=== PATIENT | female | born 1945 | race American Indian/Alaskan Native ===

== ENCOUNTER 2016-05-14 16:53 | Inpatient (IN) | payer MEDICARE, OTHER ==
[2016-05-14] MEDS ORDERED: NACL 0.9% 1000 ML 1,000 ML IV ONE (17:36)
--- NOTE | 2016-05-14 17:40 | Emergency Department Report ---
ED Syncope HPI - General Chief Complaint: Dizziness Stated Complaint: DIZZINESS/LOW BP Time Seen by Provider: 05/14/16 17:27 Source: patient, family Exam Limitations: no limitations - History of Present Illness Initial Comments: 71-year-old female appears medical history of hypertension, osteoporosis, and elevated cholesterol presents hospital complaints of syncopal episode. Patient states she has felt fine throughout the day he went to taoist earlier. She was at a restaurant eating with her family when she felt extremely lightheaded and hot. Family member states she slumped over and was unresponsive for a few seconds. Upon EMS arrival initial blood pressure reported at 82/60 with a thready pulse but improved to systolic blood pressure 107. She states she's been told that she had a fast heart rate in the past. She denies headache, chest pain, shortness of breath, nausea, vomiting, diarrhea, calf tenderness, calf edema, focal numbness or weakness. No meds given in route. PMD: Dr. Golden - Related Data Allergies/Adverse Reactions: Allergies No Known Allergies Allergy (Unverified 05/14/16 17:01) ED Review of Systems ROS: Stated complaint: DIZZINESS/LOW BP Other details as noted in HPI Comment: All other systems reviewed and negative Other: Constitutional: No fevers chills Eyes: No eye pain visual changes ENT: No ear pain or throat pain Neck: Denies pain Respiratory: Denies cough wheezing shortness of breath Cardiovascular: Denies chest pain GI: Denies abdominal pain, nausea, vomiting, diarrhea : Denies dysuria Musculoskeletal: Denies back pain Skin: Denies rash, lesions, erythema Neurologic: Denies headache, numbness, weakness Psychiatric: Denies suicidal ideation, hallucinations ED Past Medical Hx - Past Medical History Previous Medical History?: Yes Hx Hypertension: Yes - Surgical History Past Surgical History?: No ED Physical Exam - General Limitations: No Limitations - Other Other exam information: General: No limitations, patient is alert in no acute distress Head exam: Atraumatic, normocephalic Eyes exam: Normal appearance, pupils equal reactive to light, extraocular movements intact ENT: Moist mucous membrane, normal oropharynx Neck exam: Normal inspection, full range of motion, no meningismus nontender Respiratory exam: Clear to auscultation bilateral, no wheezes, rales, crackles Cardiovascular: Normal rate and rhythm, normal heart sounds Abdomen: Soft, nondistended, and nontender, with normal bowel sounds, no rebound, or guarding Extremity: Full range of motion normal inspection no deformity Back: Normal Inspection, full range of motion, no tenderness Neurologic: Alert, oriented x3, cranial nerves intact, no motor or sensory deficit, [id number] function intact Psychiatric: normal affect, normal mood Skin: Warm, dry, intact ED Course Vital Signs 05/14/16 05/14/16 05/14/16 17:01 17:20 17:30 Pulse Rate 64 86 Respiratory 16 17 Rate Blood Pressure 116/54 O2 Sat by Pulse 95 98 98 Oximetry 05/14/16 05/14/16 18:02 18:30 Pulse Rate 99 H 83 Respiratory 15 15 Rate Blood Pressure 117/65 112/60 O2 Sat by Pulse 100 Oximetry - Reevaluation(s) Reevaluation #1: 05/14/16 18:55 Hr increased by 20 bpm with standing but normal bp with orthastatic vital signs. ED Medical Decision Making - Lab Data Result diagrams: 05/14/16 18:14 05/14/16 17:37 Lab Results 05/14/16 05/14/16 05/14/16 Range/Units 17:37 17:37 17:37 WBC TNR RBC TNR Hgb TNR Hct TNR MCV TNR MCH TNR MCHC TNR RDW TNR Plt Count TNR Lymph % (Auto) TNR [place] % (Auto) TNR Eos % (Auto) TNR Baso % (Auto) TNR Lymph # TNR [place] # TNR Eos # TNR Baso # TNR Add Manual Diff TNR Seg Neutrophils % TNR Seg Neutrophils # TNR Sodium 140 (137-145) mmol/L Potassium 3.7 (3.6-5.0) mmol/L Chloride 100.8 (98-107) mmol/L Carbon Dioxide 20 L (22-30) mmol/L Anion Gap 23 mmol/L BUN 14 (7-17) mg/dL Creatinine 0.8 (0.7-1.2) mg/dL Estimated GFR > 60 ml/min BUN/Creatinine Ratio 17.50 % Glucose 126 H (65-100) mg/dL Calcium 9.3 (8.4-10.2) mg/dL Magnesium 2.0 (1.7-2.3) mg/dL Total Creatine Kinase 167 H (30-135) units/L CK-MB (CK-2) 2.4 (0.0-4.0) ng/mL CK-MB (CK-2) Rel Index 1.4 (0-4) Troponin T < 0.010 (0.00-0.029) ng/mL 05/14/16 Range/Units 18:14 WBC 9.5 RBC 4.51 Hgb 12.6 Hct 39.8 MCV 88 MCH 28 MCHC 32 RDW 14.9 Plt Count 248 Lymph % (Auto) 24.7 [place] % (Auto) 4.5 Eos % (Auto) 0.8 Baso % (Auto) 0.5 Lymph # 2.3 [place] # 0.4 Eos # 0.1 Baso # 0.0 Add Manual Diff Seg Neutrophils % 69.5 Seg Neutrophils # 6.6 Sodium (137-145) mmol/L Potassium (3.6-5.0) mmol/L Chloride (98-107) mmol/L Carbon Dioxide (22-30) mmol/L Anion Gap mmol/L BUN (7-17) mg/dL Creatinine (0.7-1.2) mg/dL Estimated GFR ml/min BUN/Creatinine Ratio % Glucose (65-100) mg/dL Calcium (8.4-10.2) mg/dL Magnesium (1.7-2.3) mg/dL Total Creatine Kinase (30-135) units/L CK-MB (CK-2) (0.0-4.0) ng/mL CK-MB (CK-2) Rel Index (0-4) Troponin T (0.00-0.029) ng/mL - EKG Data -: EKG Interpreted by Me (sinus, pvc, rate 81) - Medical Decision Making Plan to admit patient to the hospital for further monitoring and evaluation status post syncopal episode. Hospitalist informed. - Differential Diagnosis arrhythmia, vasovagal, anemia, hypovolemia, infection Critical Care Time: No Critical care attestation.: If time is entered above; I have spent that time in minutes in the direct care of this critically ill patient, excluding procedure time. ED Disposition Clinical Impression: PVC (premature ventricular contraction), Transient hypotension Syncope Qualifiers: Syncope type: unspecified Qualified Code(s): R55 - Syncope and collapse Disposition: OP ADMITTED IP TO THIS HOSP Is pt being admited?: Yes Condition: Stable Time of Disposition: 18:56 (Dr palacios/hosp)
[2016-05-14 18:07] LABS: Basophils % (Auto) TNR % (0.0-1.8); Diff Status TNR; Eosinophils % (Auto) TNR % (0.0-4.3); Hematocrit TNR % (30.3-42.9); Hemoglobin TNR gm/dl (10.1-14.3); Mean Corpuscular HGB Conc TNR % (30-34); Mean Corpuscular Hemoglobin TNR pg (28-32); Mean Corpuscular Volume TNR fl (79-97); Mean Platelet Volume TNR fl (6-12); Platelet Count TNR K/mm3 (140-440); Red Blood Count TNR M/mm3 (3.65-5.03); Red Cell Distribution Width TNR % (13.2-15.2); White Blood Count TNR K/mm3 (4.5-11.0)
[2016-05-14 18:35] LABS: Creatine Kinase MB 2.4 ng/mL (0.0-4.0)
[2016-05-14 18:36] LABS: Anion Gap 23 mmol/L; Blood Urea Nitrogen 14 mg/dL (7-17); Calcium 9.3 mg/dL (8.4-10.2); Carbon Dioxide 20 mmol/L (22-30); Chloride 100.8 mmol/L (98-107); Creatine Kinase 167 units/L (30-135); Glucose 126 mg/dL (65-100); Potassium 3.7 mmol/L (3.6-5.0); Sodium 140 mmol/L (137-145)
[2016-05-14 18:53] LABS: Basophils % (Auto) 0.5 % (0.0-1.8); Eosinophils % (Auto) 0.8 % (0.0-4.3); Hematocrit 39.8 % (30.3-42.9); Hemoglobin 12.6 gm/dl (10.1-14.3); Mean Corpuscular HGB Conc 32 % (30-34); Mean Corpuscular Hemoglobin 28 pg (28-32); Mean Corpuscular Volume 88 fl (79-97); Platelet Count 248 K/mm3 (140-440); Red Blood Count 4.51 M/mm3 (3.65-5.03); Red Cell Distribution Width 14.9 % (13.2-15.2); White Blood Count 9.5 K/mm3 (4.5-11.0)
[2016-05-14 19:12] LABS: Bilirubin,Urine NEG (Negative); Blood,Urine NEG (Negative); Ketones,Urine NEG (Negative); Leukocyte Esterase,Urine SM (Negative); Mucus,Urine FEW /HPF; Nitrite,Urine NEG (Negative); Protein,Urine <15 mg/dL mg/dL (Negative); Urobilinogen,Urine < 2.0 mg/dL (<2.0)
[2016-05-14] MEDS ORDERED: MILK OF MAGNESIA PO PRN (19:14)
[2016-05-14] MEDS ORDERED: TYLENOL PO PRN (19:14)
[2016-05-14] MEDS ORDERED: ZOFRAN IV PRN (19:14)
[2016-05-14] MEDS ORDERED: DULCOLAX PR PRN (19:14)
[2016-05-14] MEDS ORDERED: NORCO 5/325 PO PRN (19:14)
--- NOTE | 2016-05-14 19:22 | History and Physical Report ---
History of Present Illness Date of examination: 05/14/16 Date of admission: 05/14/2016 Chief complaint: Syncope History of present illness: Patient 71-year-old female that presents to the ED after a syncopal episode that happened after christianity when she was in a restaurant. Patient states she began to get hot and then had an episode where she passed out. Only prodromal symptom was feeling hot. Patient also had a similar episode approximately 6 months ago when she was at her sister's house sitting on the couch and began to get hot and also passed out as well. Seem to last less than 1 minute. Patient also states it was a time she passed out before that but does not remember the details. Daughter and son both at bedside. All questions and concerns answered to their satisfaction. It was asked at this time didn't remember the blood pressure medications or she remember the blood pressure medication she was taking because the pressure was low upon presentation. Patient states no. Patient goes to [facility] and has had a workup at either [place] or [facility]. Patient states workup they think was after her initial episode of passing out. Cardiac workup done approximately 1 year ago was negative. But this cardiac workup was not in response to this syncopal episode. This was a routine workup was she had a stress tests and she says results were negative at [place]. Important to note that the blood pressure was low when patient came into the ED. Patient blood pressure responded after receiving one to 2 L of normal saline. Past History Past Medical History: denies: acute [place], atrial fib, arrhythmia, arthritis, CAD, COPD, dialysis, ESRD, GERD, heart failure, hepatitis, HIV/AIDS, hypertension, hypothyroidism, liver disease, pulmonary embolism, renal failure Past Surgical History: No surgical history Social history: single, lives with family. denies: smoking, alcohol abuse, prescription drug abuse, IV drug use, full code Family history: no significant family history Medications and Allergies Allergies Allergy/AdvReac Type Severity Reaction Status Date / Time No Known Allergies Allergy Unverified 05/14/16 17:01 Review of Systems Constitutional: no chills, no anorexia, no fatigue, no weakness, no malaise, no lethargy, no daytime sleepiness, no chronic pain Ears, nose, mouth and throat: no ear pain, no ear discharge, no tinnitis, no nose pain, no nasal congestion, no nasal discharge, no sinus pressure, no mouth pain, no hoarseness, no post-nasal drip, no headache, no vertigo, no pain front of neck, no neck lump Breasts: no deferred, no normal, no change in shape, no mass, no pain Cardiovascular: syncope, no chest pain, no orthopnea, no rapid/irregular heart beat, no edema, no lightheadedness, no shortness of breath, no dyspnea on exertion, no claudication, no phlebitis, no high blood pressure, no leg edema Respiratory: no cough with sputum, no excessive sputum, no shortness of breath, no wheezing, no snoring, no sleep apnea, no respiratory infections Gastrointestinal: no diarrhea, no change in bowel habits, no loss of appetite, no early satiety, no heartburn, no excessive gas, no dyspepsia/bloating, no early satiety Genitourinary Female: no , no kidney stones Menstruation: no ammenorrhea, no period normal, no period spotting Rectal: no incontinence, no bleeding Musculoskeletal: no neck stiffness, no shooting arm pain, no arm numbness/ tingling, no low back pain, no shooting leg pain, no redness of joints, no morning stiffness, no muscle weakness, no myalgias, no limitation of motion, no fractures, no loss of height, no arthritis Integumentary: no pruritis, no redness, no jaundice Neurological: syncope, no head injury, no weakness, no parathesias, no numbness , no tingling, no seizures, no tremors, no ataxia, no lack of coordination, no vertigo, no headaches, no migraines, no tic, no convulsions, no aphasia, no change in speech, no change in mentation, no confusion, no memory loss, no changes in smell/taste, no balance difficulties, no gait dysfunction, no motor disturbance, no double vision, no hearing difficulties, no paralysis Psychiatric: no memory loss, no change in sleep habits, no insomnia, no hypersomnia, no change in appetite, no suicidal ideation, no disorientation, no depression, no difficulties concentrating, no sadness/tearfullness, no mood swings Endocrine: no heat intolerance, no polyphagia, no excessive thirst, no nocturia , no excessive sweating, no increase in ring/shoe/hat size, no proptosis, no thyroid mass, no low blood sugars, no recent glucocorticoid use Hematologic/Lymphatic: no easy bruising, no easy bleeding, no lymphadenopathy, no lymphedema, no thrombophilia Allergic/Immunologic: no urticaria, no allergic rhinitis, no persistent infections, no angioedema, no seasonal allergies Exam - Constitutional Vitals: Temp Pulse Resp BP Pulse Ox 83 15 112/60 100 05/14/16 18:30 05/14/16 18:30 05/14/16 18:30 05/14/16 18:30 General appearance: Present: no acute distress, well-nourished - EENT Eyes: Present: PERRL ENT: hearing intact, clear oral mucosa - Respiratory Respiratory effort: normal Respiratory: bilateral: CTA - Cardiovascular Heart Sounds: Present: S1 & S2. Absent: rub, click - Extremities Extremities: pulses symmetrical, No edema Peripheral Pulses: within normal limits - Abdominal General gastrointestinal: Present: soft, non-tender, non-distended, normal bowel sounds - Integumentary Integumentary: Present: clear, warm, dry - Musculoskeletal Musculoskeletal: gait normal, strength equal bilaterally - Psychiatric Psychiatric: appropriate mood/affect, intact judgment & insight - Neurologic Neurologic: CNII-XII intact, moves all extremities Results - Labs CBC & Chem 7: 05/14/16 18:14 05/14/16 17:37 Labs: Laboratory Last Values WBC 9.5 K/mm3 (4.5-11.0) 05/14/16 18:14 RBC 4.51 M/mm3 (3.65-5.03) 05/14/16 18:14 Hgb 12.6 gm/dl (10.1-14.3) 05/14/16 18:14 Hct 39.8 % (30.3-42.9) 05/14/16 18:14 MCV 88 fl (79-97) 05/14/16 18:14 MCH 28 pg (28-32) 05/14/16 18:14 MCHC 32 % (30-34) 05/14/16 18:14 RDW 14.9 % (13.2-15.2) 05/14/16 18:14 Plt Count 248 K/mm3 (140-440) 05/14/16 18:14 Lymph % (Auto) 24.7 % (13.4-35.0) 05/14/16 18:14 [place] % (Auto) 4.5 % (0.0-7.3) 05/14/16 18:14 Eos % (Auto) 0.8 % (0.0-4.3) 05/14/16 18:14 Baso % (Auto) 0.5 % (0.0-1.8) 05/14/16 18:14 Lymph # 2.3 K/mm3 (1.2-5.4) 05/14/16 18:14 [place] # 0.4 K/mm3 (0.0-0.8) 05/14/16 18:14 Eos # 0.1 K/mm3 (0.0-0.4) 05/14/16 18:14 Baso # 0.0 K/mm3 (0.0-0.1) 05/14/16 18:14 Add Manual Diff TNR 05/14/16 17:37 Seg Neutrophils % 69.5 % (40.0-70.0) 05/14/16 18:14 Seg Neutrophils # 6.6 K/mm3 (1.8-7.7) 05/14/16 18:14 Sodium 140 mmol/L (137-145) 05/14/16 17:37 Potassium 3.7 mmol/L (3.6-5.0) 05/14/16 17:37 Chloride 100.8 mmol/L (98-107) 05/14/16 17:37 Carbon Dioxide 20 mmol/L (22-30) L 05/14/16 17:37 Anion Gap 23 mmol/L 05/14/16 17:37 BUN 14 mg/dL (7-17) 05/14/16 17:37 Creatinine 0.8 mg/dL (0.7-1.2) 05/14/16 17:37 Estimated GFR > 60 ml/min 05/14/16 17:37 BUN/Creatinine Ratio 17.50 % 05/14/16 17:37 Glucose 126 mg/dL (65-100) H 05/14/16 17:37 Calcium 9.3 mg/dL (8.4-10.2) 05/14/16 17:37 Magnesium 2.0 mg/dL (1.7-2.3) 05/14/16 17:37 Total Creatine Kinase 167 units/L (30-135) H 02/19/17 17:37 CK-MB (CK-2) 2.4 ng/mL (0.0-4.0) 05/14/16 17:37 CK-MB (CK-2) Rel Index 1.4 (0-4) 05/14/16 17:37 Troponin T < 0.010 ng/mL (0.00-0.029) 05/14/16 17:37 Urine Bilirubin Neg (Negative) 05/14/16 18:10 Urine RBC (Auto) 4.0 /HPF (0.0-6.0) 05/14/16 18:10 U Epithel Cells (Auto) < 1.0 /HPF (0-13.0) 05/14/16 18:10 - Imaging and Cardiology EKG: image reviewed Assessment and Plan Advance Directives: Yes VTE prophylaxis?: Chemical Plan of care discussed with patient/family: Yes - Patient Problems (1) PVC (premature ventricular contraction) Current Visit: Yes Status: Acute Plan to address problem: Patient at present on EKG and on physical exam has multiple PVCs. Obtain echocardiogram we'll also obtain cardiology consult to see if they could be some role of recurring PVCs and this syncope. We'll give obtain echo to rule out any structural heart disease that we know of. Patient has had negative stress tests approximately one year ago so may not be very important. We'll provide extensive check of electrolytes. Current electrolytes potassium magnesium have been normal and does not appear to be etiology of PVCs. Unknown whether this in combination with the blood pressure medication caused hypotension. Still low on the differential at this point (2) Syncope Current Visit: Yes Status: Acute Qualifiers: Syncope type: unspecified Encounter type: E Qualified Code(s): R55 - Syncope and collapse Plan to address problem: Syncope exact etiology unknown at present at top of the differential is vasovagal. Patient felt hot and then passed out on both occasions. Also orthostatic hypotension also in the differential. Patient blood pressure was low and didn't respond to normal saline. Also patient may not require high dose of antihypertensives. We are not sure at this point what she's taking. However if she is on a high dose beta sami and/or high dose of medications may be this was too much for her and this what caused her blood pressure to go down. Patient has no evidence of dehydration on physical exam. Her creatinine looked normal and patient states she's been eating and drinking as usual. Will see how patient's PVCs respond on the monitor and obtain echocardiogram cardiology consult. (3) Transient hypotension Current Visit: Yes Status: Acute Plan to address problem: Present hypotension could be secondary to patient's blood pressure med
[2016-05-14 20:18] LABS: Creatine Kinase MB 2.3 ng/mL (0.0-4.0)
[2016-05-14] MEDS: NACL 0.9% 1000 ML 1,000 ML IV SCH (21:42)
[2016-05-15] MEDS: NACL 0.9% 1000 ML 1,000 ML IV SCH ×2 (05:44→16:18)
--- NOTE | 2016-05-15 09:03 | Admit Criteria Form ---
Admission Criteria Documentation: SYNCOPE Clinical Indications for Admission to Inpatient Care ( Place 'X' for any and all applicable criteria): Admission is indicated for syncope and ANY ONE of the following (1)(2)(3)(4)(5) (6)(7) : [X]I. Inpatient admission required rather than observation care (Also use Syncope: Observation Care Criteria as appropriate) because of ANY ONE of the following: []a) Hemodynamic instability that is severe or persistent [X]b) Cardiac arrhythmias of immediate concern identified or strongly suspected (eg, needs electrophysiologic study) [ ]c) Acute coronary syndrome identified (Also use Myocardial Infarction or Angina Criteria form ) [ ]d) Structural cardiac disorder (eg, aortic stenosis) suspected as cause that requires immediate correction [ ]e) Respiratory symptoms (eg, dyspnea, tachypnea) that are severe or persistent [ ]f) Neurologic signs or symptoms that are severe or persistent ( eg, stroke, seizures, altered mental status) [ ]g) Severe electrolyte abnormalities requiring inpatient care [ ]h) Supplemental oxygen or respiratory treatment for over 24 hrs that are performable only in acute inpatient setting [ ]i) IV fluid to replace significant ongoing (eg, for over 24 hrs ) losses (>3 L/m2 per day) [ ]j) Continuous intravenous infusion of anticoagulation, platelet inhibitor, vasoactive, or antiarrhythmic medication(15)(16) [ ]k) Pulmonary artery catheter monitoring [ ]l) Temporary pacemaker placement(17) [ ]m) Emergent cardioversion(18) [ ]n) Other conditions, treatment or monitoring requiring inpatient admission [ ]II. Suspicion of imminently dangerous cause (eg, rare causes like pericardial tamponade, pulmonary embolism) [ ]III. Syncope causing severe injury requiring hospitalization Extended stay beyond goal length of stay may be needed for(28) [ ]a) Dangerous arrhythmia(15)(23)(27)(29) [ ]b) Myocardial ischemia [ ]c) Seizure disorder [ ]d) Syncope-related injuries The original [employer] content created by [employer] has been revised. The portions of the content which have been revised are identified through the use of italic text or in bold, and [employer] has neither reviewed nor approved the modified material. All other unmodified content is copyright [employer]. Please see references footnoted in the original [facility] edition 2016 Admission Criteria Met: Yes
[2016-05-15] MEDS: LOVENOX SUB-Q SCH ×2 (09:52→10:27)
[2016-05-15] MEDS ORDERED: NON-FORMULARY (Lisinopril/Hydrochlorothiazide [Zestoretic 10-12.5 Mg] 1 TAB) PO SCH (13:00)
--- NOTE | 2016-05-15 13:11 | Progress Note ---
Assessment and Plan Assessment and plan: Syncope. Etiology unclear. Echocardiogram ordered. Obtain orthostatic vitals every 8 hours. Cardiology consulted. Multiple PVCs on tele. May need betablockers. She is on Tele monitor. Hypertension. Resume home meds. Hyperlipidemia. Continue Statuns DVT prophylaxis with Lovenox Full code status History Interval history: Presents presents with syncope while she was at a restaurant, No chest pain No shortness of breath Hospitalist Physical - Physical exam Narrative exam: Gen. appearance: not in acute distress, HEENT: Normocephalic atraumatic, Neck: supple , no JVD Lungs: clear to auscultation, bilaterally . no rales, no wheezes. Heart: S1-S2 regular, no murmurs, rubs or gallop Abdomen:soft, non-tender, non-distended, normal bowel sounds Ext: No edema, clubbing or cyanosis Neuro : Awake alert oriented 3, no focal neurologic signs Psychiatry: normal mood Skin: no rashes - Constitutional Vitals: Temp Pulse Resp BP Pulse Ox 98.8 F 87 20 139/70 99 05/15/16 07:00 05/15/16 07:00 05/15/16 07:00 05/15/16 07:00 05/15/16 07:00 Results - Labs CBC & Chem 7: 05/14/16 18:14 05/14/16 17:37 Labs: Laboratory Last Values WBC 9.5 K/mm3 (4.5-11.0) 05/14/16 18:14 RBC 4.51 M/mm3 (3.65-5.03) 05/14/16 18:14 Hgb 12.6 gm/dl (10.1-14.3) 05/14/16 18:14 Hct 39.8 % (30.3-42.9) 05/14/16 18:14 MCV 88 fl (79-97) 05/14/16 18:14 MCH 28 pg (28-32) 05/14/16 18:14 MCHC 32 % (30-34) 05/14/16 18:14 RDW 14.9 % (13.2-15.2) 05/14/16 18:14 Plt Count 248 K/mm3 (140-440) 05/14/16 18:14 Lymph % (Auto) 24.7 % (13.4-35.0) 05/14/16 18:14 [place] % (Auto) 4.5 % (0.0-7.3) 05/14/16 18:14 Eos % (Auto) 0.8 % (0.0-4.3) 05/14/16 18:14 Baso % (Auto) 0.5 % (0.0-1.8) 05/14/16 18:14 Lymph # 2.3 K/mm3 (1.2-5.4) 05/14/16 18:14 Nicholas # 0.4 K/mm3 (0.0-0.8) 05/14/16 18:14 Eos # 0.1 K/mm3 (0.0-0.4) 05/14/16 18:14 Baso # 0.0 K/mm3 (0.0-0.1) 05/14/16 18:14 Add Manual Diff TNR 05/14/16 17:37 Seg Neutrophils % 69.5 % (40.0-70.0) 05/14/16 18:14 Seg Neutrophils # 6.6 K/mm3 (1.8-7.7) 05/14/16 18:14 Sodium 140 mmol/L (137-145) 05/14/16 17:37 Potassium 3.7 mmol/L (3.6-5.0) 05/14/16 17:37 Chloride 100.8 mmol/L (98-107) 05/14/16 17:37 Carbon Dioxide 20 mmol/L (22-30) L 05/14/16 17:37 Anion Gap 23 mmol/L 05/14/16 17:37 BUN 14 mg/dL (7-17) 05/14/16 17:37 Creatinine 0.8 mg/dL (0.7-1.2) 05/14/16 17:37 Estimated GFR > 60 ml/min 05/14/16 17:37 BUN/Creatinine Ratio 17.50 % 05/14/16 17:37 Glucose 126 mg/dL (65-100) H 05/14/16 17:37 Calcium 9.3 mg/dL (8.4-10.2) 05/14/16 17:37 Magnesium 2.0 mg/dL (1.7-2.3) 05/14/16 17:37 Total Creatine Kinase 147 units/L (30-135) H 05/14/16 19:41 CK-MB (CK-2) 2.3 ng/mL (0.0-4.0) 05/14/16 19:41 CK-MB (CK-2) Rel Index 1.5 (0-4) 05/14/16 19:41 Troponin T < 0.010 ng/mL (0.00-0.029) 05/14/16 17:37 Urine Color Yellow (Yellow) 05/14/16 18:10 Urine Turbidity Clear (Clear) 05/14/16 18:10 Urine pH 5.0 (5.0-7.0) 05/14/16 18:10 Ur Specific [place] 1.016 (1.003-1.030) 05/14/16 18:10 Urine Protein <15 mg/dl mg/dL (Negative) 05/14/16 18:10 Urine Glucose (UA) Neg mg/dL (Negative) 05/14/16 18:10 Urine Ketones Neg mg/dL (Negative) 05/14/16 18:10 Urine Blood Neg (Negative) 05/14/16 18:10 Urine Nitrite Neg (Negative) 05/14/16 18:10 Urine Bilirubin Neg (Negative) 05/14/16 18:10 Urine Urobilinogen < 2.0 mg/dL (<2.0) 05/14/16 18:10 Ur Leukocyte Esterase Sm (Negative) 05/14/16 18:10 Urine WBC (Auto) 2.0 /HPF (0.0-6.0) 05/14/16 18:10 Urine RBC (Auto) 4.0 /HPF (0.0-6.0) 05/14/16 18:10 U Epithel Cells (Auto) < 1.0 /HPF (0-13.0) 05/14/16 18:10 Urine Mucus Few /HPF 05/14/16 18:10
--- NOTE | 2016-05-15 14:35 | Progress Note ---
Subjective Date of service: 05/15/16 Principal diagnosis: syncope Objective Vital Signs Temp Pulse Pulse Pulse Resp Resp BP 05/15/16 07:00 98.8 F 87 20 05/15/16 00:00 97.7 F 73 18 05/14/16 22:00 90 18 18 05/14/16 20:40 84 05/14/16 20:00 81 13 133/104 05/14/16 19:31 82 14 128/61 05/14/16 19:00 76 24 112/64 BP BP Pulse Ox 05/15/16 07:00 139/70 99 05/15/16 00:00 122/68 99 05/14/16 22:00 99 05/14/16 20:40 118/88 05/14/16 20:00 99 05/14/16 19:31 98 05/14/16 19:00 99 - Labs and Meds Cardiac Enzymes 05/14/16 Range/Units 19:41 CK-MB (CK-2) 2.3 (0.0-4.0) ng/mL - Imaging and Cardiology EKG: image reviewed
--- NOTE | 2016-05-15 14:37 | Consultation ---
History of Present Illness Consult date: 05/15/16 Requesting physician: SHARIF LARA Consult reason: syncope History of present illness: The patient is a 71 year old female with a history of hypertension, hyperlipidemia who presented after a syncopal episode yesterday. She states that after [facility] yesterday she went out to eat with her son. She was sitting down when she suddenly felt very hot. The next thing she remembers she was waking up in the ambulance. She denies any chest pain, palpitations, shortness of breath, nausea, vomiting or diaphoresis. She reports 2 similar episodes within the past one year. Troponin negative. Past History Past Medical History: hypertension, hyperlipidemia, other (osteoporosis) Past Surgical History: appendectomy, hysterectomy, Other (back surgery) Social history: single, lives with family. denies: smoking, alcohol abuse, prescription drug abuse, IV drug use, full code Family history: no significant family history Medications and Allergies Allergies Allergy/AdvReac Type Severity Reaction Status Date / Time No Known Allergies Allergy Unverified 05/14/16 17:01 Home Medications Medication Instructions Recorded Confirmed Last Taken Type Alendronate Sodium [Fosamax] 70 mg PO QWEEK 05/15/16 05/15/16 Unknown History AtorvaSTATin [Lipitor] 40 mg PO DAILY 05/15/16 05/15/16 Unknown History Lisinopril/Hydrochlorothiazide 1 tab PO QDAY 05/15/16 05/15/16 Unknown History [Zestoretic 10-12.5 mg] Potassium Chloride [K-Dur] 20 meq PO QDAY 05/15/16 05/15/16 Unknown History Active Meds: Active Medications Acetaminophen (Tylenol) 650 mg PO Q4H PRN PRN Reason: Pain MILD(1-3)/Fever >100.5/LENTZ Acetaminophen/Hydrocodone Bitart ([place] 5/325) 2 each PO Q6H PRN PRN Reason: Pain, Moderate (4-6) Atorvastatin Calcium (Lipitor) 40 mg PO QHS [place] Bisacodyl (Dulcolax) 10 mg [place] QDAY PRN PRN Reason: Constipation unrelieved by MOM Enoxaparin Sodium (Lovenox) 40 mg SUB-Q QDAY@1000 [place] Last Admin: 05/15/16 10:27 Dose: 40 mg Hydrochlorothiazide (Hctz) 12.5 mg PO QDAY [place] Sodium Chloride (Nacl 0.9% 1000 Ml) 1,000 mls @ 100 mls/hr IV DIRECT [place] Last Admin: 05/15/16 05:44 Dose: 100 mls/hr Lisinopril (Zestril) 10 mg PO QDAY [facility] Magnesium Hydroxide (Milk Of Magnesia) 30 ml PO Q4H PRN PRN Reason: Constipation Ondansetron HCl (Zofran) 4 mg IV Q8H PRN PRN Reason: N/V unrelieved by Reglan Potassium Chloride (K-Dur) 20 meq PO QDAY [facility] Review of Systems Constitutional: no fever, no chills Ears, nose, mouth and throat: no nasal congestion, no nasal discharge, no sinus pressure Cardiovascular: syncope, no chest pain, no orthopnea, no shortness of breath, no dyspnea on exertion Respiratory: no congestion, no wheezing Gastrointestinal: no abdominal pain, no nausea, no vomiting Genitourinary Female: no dysuria, no urgency Musculoskeletal: no neck stiffness, no neck pain, no myalgias Integumentary: no rash, no pruritis Neurological: syncope, no parathesias, no numbness, no tingling, no headaches Endocrine: no cold intolerance, no heat intolerance Hematologic/Lymphatic: no easy bruising, no easy bleeding Allergic/Immunologic: no urticaria, no wheezing Physical Examination Last Vital Signs Temp 98.8 F 05/15/16 07:00 Pulse 87 05/15/16 07:00 Resp 20 05/15/16 07:00 BP 139/70 05/15/16 07:00 Pulse Ox 99 05/15/16 07:00 General appearance: no acute distress HEENT: Positive: PERRL, Normocephaly, Mucus Membranes Moist Neck: Positive: neck supple, trachea midline Cardiac: Positive: Reg Rate and Rhythm, S1/S2 Lungs: Positive: clear to auscultation Neuro: Positive: Grossly Intact Abdomen: Positive: Soft, Active Bowel Sounds. Negative: Tender Skin: Positive: Clear. Negative: Rash Extremities: Present: normal. Absent: edema Results 05/14/16 18:14 05/14/16 17:37 Cardiac Enzymes 05/14/16 Range/Units 19:41 CK-MB (CK-2) 2.3 (0.0-4.0) ng/mL - Imaging and Cardiology Echo: pending EKG: image reviewed EKG interpretations - Telemetry EKG Rhythm: Sinus Rhythm - EKG Sinus rhythms and dysrhythmias: sinus rhythm Ventricular dysrhythmias: ventricular premature com Assessment and Plan Syncope orthostatics negative obtain d-dimer obtain carotids await echo findings PVCs will continue to observe on the monitor Hypertension stable hold HCTZ/potassium for now Hyperlipidemia continue statin The patient has been seen in conjunction with Dr. Milan who agrees with the assessment and plan of care. Thank you Dr. Denny for allowing us to participate in the care of this patient.
[2016-05-15] MEDS: HCTZ PO SCH (16:19)
[2016-05-15] MEDS: K-DUR PO SCH (16:19)
[2016-05-15] MEDS: ZESTRIL PO SCH (16:20)
[2016-05-16 00:21] LABS: Creatine Kinase MB 2.3 ng/mL (0.0-4.0)
[2016-05-16] MEDS: NACL 0.9% 1000 ML 1,000 ML IV SCH (04:29)
[2016-05-16 05:23] LABS: Anion Gap 17 mmol/L; BUN/Creatinine Ratio 18.33; Blood Urea Nitrogen 11 mg/dL (7-17); Calcium 8.7 mg/dL (8.4-10.2); Carbon Dioxide 22 mmol/L (22-30); Chloride 105.5 mmol/L (98-107); Glucose 92 mg/dL (65-100); Potassium 3.8 mmol/L (3.6-5.0); Sodium 141 mmol/L (137-145)
[2016-05-16] MEDS: K-DUR PO SCH (09:26)
[2016-05-16] MEDS: ZESTRIL PO SCH (09:26)
[2016-05-16] MEDS: LOVENOX SUB-Q SCH (09:26)
[2016-05-16] MEDS: HCTZ PO SCH (09:26)
--- NOTE | 2016-05-16 12:49 | Progress Note ---
Assessment and Plan Syncope troponin negative orthostatics negative carotids negative d-dimer mildly elevated Echo: EF 50-55%, impaired relaxation PVCs initiate metoprolol 25mg BID will continue to observe on the monitor Hypertension stable continue lisinopril, metoprolol Hyperlipidemia continue statin Stable cardiac status. Will initiate metoprolol and continue to observe on the monitor. The patient has been seen in conjunction with Dr. Milan who agrees with the assessment and plan of care. Subjective Date of service: 05/16/16 Principal diagnosis: syncope, PVCs Interval history: The patient is resting comfortably in bed. No new complaints. Sinus rhythm with frequent PVCs noted on the monitor. Objective Last Vital Signs Temp 97.9 F 05/16/16 07:20 Pulse 97 H 05/16/16 07:20 Resp 20 05/16/16 07:20 BP 144/75 05/16/16 07:20 Pulse Ox 99 05/16/16 07:20 - Physical Examination General: No Apparent Distress HEENT: Positive: PERRL, Normocephaly, Mucus Membranes Moist Neck: Positive: neck supple, trachea midline Cardiac: Positive: Reg Rate and Rhythm, S1/S2 Lungs: Positive: clear to auscultation Neuro: Positive: Grossly Intact Abdomen: Positive: Soft, Active Bowel Sounds. Negative: Tender Skin: Positive: Clear. Negative: Rash Extremities: Present: normal. Absent: edema - Labs and Meds Cardiac Enzymes 05/15/16 Range/Units 23:38 CK-MB (CK-2) 2.3 (0.0-4.0) ng/mL Comprehensive Metabolic Panel 05/16/16 Range/Units 04:40 Sodium 141 (137-145) mmol/L Potassium 3.8 (3.6-5.0) mmol/L Chloride 105.5 (98-107) mmol/L Carbon Dioxide 22 (22-30) mmol/L BUN 11 (7-17) mg/dL Creatinine 0.6 L (0.7-1.2) mg/dL Glucose 92 (65-100) mg/dL Calcium 8.7 (8.4-10.2) mg/dL - Imaging and Cardiology EKG: image reviewed Echo: report reviewed - Telemetry EKG Rhythm: Sinus Rhythm - EKG Sinus rhythms and dysrhythmias: sinus rhythm Ventricular dysrhythmias: ventricular premature com
--- NOTE | 2016-05-16 14:35 | Progress Note ---
Assessment and Plan Assessment and plan: Syncope. * Etiology unclear. * Echocardiogram showed normal EF. * Normal orthostatic vitals * Carotid Doppler showed less than 50% stenosis bilaterally * We'll order CT scan of the head and EEG * We'll also consult neurology to rule out possible seizure Multiple PVCs on tele. * Started on betablockers. She is on Tele monitor. * Continue to monitor overnight Hypertension. Continue home meds. Hyperlipidemia. Continue Statins DVT prophylaxis with Lovenox Full code status History Interval history: Patient seen and examined. Medical records and medication list reviewed. No acute event overnight noted by the RN. Patient denies any chest pain or difficulty breathing. Patient is tolerating diet. Discussed with the patient and her family member who witnessed the episode of syncope. Patient did not have any tongue bite stool or urinary incontinence during the episode But according to them she had prior two episodes and during her first episode she did have bowel incontinence Discussed plan of care at bedside with patient. Hospitalist Physical - Physical exam Narrative exam: GENERAL: well-developed elderly -Greek female lying on bed appeared to be in no discomfort. HEENT: Normocephalic. Atraumatic. No conjunctival congestion or icterus. Patient has moist mucous membranes. NECK: Supple. Trachea midline. CHEST/LUNGS: Clear to auscultated bilaterally, breathing nonlabored. No wheezes crackles or rhonchi. HEART/CARDIOVASCULAR: Regular in rate and rhythm. S1 and S2 positive. ABDOMEN: Abdomen is soft, nontender. Patient has normal bowel sounds. SKIN: There is no rash. Warm and dry. NEURO: No focal motor deficit. Follows command. MUSCULOSKELETAL: No joint effusion or tenderness. EXTRIMITY: No edema, no cyanosis or clubbing. PSYCH: Cooperative. - Constitutional Vitals: Temp Pulse Resp BP Pulse Ox 97.9 F 97 H 20 144/75 99 05/16/16 07:20 05/16/16 07:20 05/16/16 07:20 05/16/16 07:20 05/16/16 07:20 General appearance: Present: no acute distress, well-nourished Results - Labs CBC & Chem 7: 05/14/16 18:14 05/16/16 04:40 Labs: Laboratory Last Values WBC 9.5 K/mm3 (4.5-11.0) 05/14/16 18:14 RBC 4.51 M/mm3 (3.65-5.03) 05/14/16 18:14 Hgb 12.6 gm/dl (10.1-14.3) 05/14/16 18:14 Hct 39.8 % (30.3-42.9) 05/14/16 18:14 MCV 88 fl (79-97) 05/14/16 18:14 MCH 28 pg (28-32) 05/14/16 18:14 MCHC 32 % (30-34) 05/14/16 18:14 RDW 14.9 % (13.2-15.2) 05/14/16 18:14 Plt Count 248 K/mm3 (140-440) 05/14/16 18:14 Lymph % (Auto) 24.7 % (13.4-35.0) 05/14/16 18:14 [place] % (Auto) 4.5 % (0.0-7.3) 05/14/16 18:14 Eos % (Auto) 0.8 % (0.0-4.3) 05/14/16 18:14 Baso % (Auto) 0.5 % (0.0-1.8) 05/14/16 18:14 Lymph # 2.3 K/mm3 (1.2-5.4) 05/14/16 18:14 [place] # 0.4 K/mm3 (0.0-0.8) 05/14/16 18:14 Eos # 0.1 K/mm3 (0.0-0.4) 05/14/16 18:14 Baso # 0.0 K/mm3 (0.0-0.1) 05/14/16 18:14 Add Manual Diff TNR 05/14/16 17:37 Seg Neutrophils % 69.5 % (40.0-70.0) 05/14/16 18:14 Seg Neutrophils # 6.6 K/mm3 (1.8-7.7) 05/14/16 18:14 D-Dimer 440.59 ng/mlDDU (0-234) H 05/15/16 15:48 Sodium 141 mmol/L (137-145) 05/16/16 04:40 Potassium 3.8 mmol/L (3.6-5.0) 05/16/16 04:40 Chloride 105.5 mmol/L (98-107) 05/16/16 04:40 Carbon Dioxide 22 mmol/L (22-30) 05/16/16 04:40 Anion Gap 17 mmol/L 05/16/16 04:40 BUN 11 mg/dL (7-17) 05/16/16 04:40 Creatinine 0.6 mg/dL (0.7-1.2) L 05/16/16 04:40 Estimated GFR > 60 ml/min 05/16/16 04:40 BUN/Creatinine Ratio 18.33 % 05/16/16 04:40 Glucose 92 mg/dL (65-100) 05/16/16 04:40 Calcium 8.7 mg/dL (8.4-10.2) 05/16/16 04:40 Magnesium 2.0 mg/dL (1.7-2.3) 05/14/16 17:37 Total Creatine Kinase 129 units/L (30-135) 05/15/16 23:38 CK-MB (CK-2) 2.3 ng/mL (0.0-4.0) 05/15/16 23:38 CK-MB (CK-2) Rel Index 1.7 (0-4) 05/15/16 23:38 Troponin T < 0.010 ng/mL (0.00-0.029) 05/14/16 17:37 Urine Color Yellow (Yellow) 05/14/16 18:10 Urine Turbidity Clear (Clear) 05/14/16 18:10 Urine pH 5.0 (5.0-7.0) 05/14/16 18:10 Ur Specific [place] 1.016 (1.003-1.030) 05/14/16 18:10 Urine Protein <15 mg/dl mg/dL (Negative) 05/14/16 18:10 Urine Glucose (UA) Neg mg/dL (Negative) 05/14/16 18:10 Urine Ketones Neg mg/dL (Negative) 05/14/16 18:10 Urine Blood Neg (Negative) 05/14/16 18:10 Urine Nitrite Neg (Negative) 05/14/16 18:10 Urine Bilirubin Neg (Negative) 05/14/16 18:10 Urine Urobilinogen < 2.0 mg/dL (<2.0) 05/14/16 18:10 Ur Leukocyte Esterase Sm (Negative) 05/14/16 18:10 Urine WBC (Auto) 2.0 /HPF (0.0-6.0) 05/14/16 18:10 Urine RBC (Auto) 4.0 /HPF (0.0-6.0) 05/14/16 18:10 U Epithel Cells (Auto) < 1.0 /HPF (0-13.0) 05/14/16 18:10 Urine Mucus Few /HPF 05/14/16 18:10 - Imaging and Cardiology Imaging and Cardiology: Carotid Doppler revealed less than 50% stenosis bilaterally
--- NOTE | 2016-05-16 15:08 | Cat Scan Report ---
CT HEAD WITHOUT CONTRAST: HISTORY: Syncope. TECHNIQUE: Sequential CT images without contrast. FINDINGS: Images obtained show bilateral prominence of the sulci and ventricles. There are no abnormal intra- or extra-axial blood or fluid collections. There are no focal masses or evidence of mass effect. The lind white matter differentiation appears within normal limits. Regions of periventricular decreased attenuation are consistent with microangiopathic ischemic disease. The posterior fossa structures including the fourth ventricle, cerebellum, and brainstem appear normal. IMPRESSION: Evidence of atrophy and microangiopathic ischemic disease. No acute intracranial process noted.
--- NOTE | 2016-05-16 16:47 | Consultation ---
History of Present Illness - Reason for Consult Consult date: 05/16/16 seizure - History of Present Illness full note is dictated and the patient does appear stable at this time she has prior hx of at least 4 episodes of similar nature by description sounds like tonic seizure neuro exam is normal and there are only mild age related changes in the CT of the brain plan to review the EEG and I will comment later based on the description seizures seem likely Past History Past Medical History: hypertension, hyperlipidemia, other (osteoporosis) Past Surgical History: appendectomy, hysterectomy, Other (back surgery) Social history: single, lives with family. denies: smoking, alcohol abuse, prescription drug abuse, IV drug use, full code Family history: no significant family history Medications and Allergies Allergies Allergy/AdvReac Type Severity Reaction Status Date / Time No Known Allergies Allergy Unverified 05/14/16 17:01 Home Medications Medication Instructions Recorded Confirmed Last Taken Type Alendronate Sodium [Fosamax] 70 mg PO QWEEK 05/15/16 05/16/16 05/10/16 07:00 History AtorvaSTATin [Lipitor] 40 mg PO DAILY 05/15/16 05/15/16 Unknown History Lisinopril/Hydrochlorothiazide 1 tab PO QDAY 05/15/16 05/15/16 Unknown History [Zestoretic 10-12.5 mg] Potassium Chloride [K-Dur] 20 meq PO QDAY 05/15/16 05/15/16 Unknown History Active Meds: Active Medications Acetaminophen (Tylenol) 650 mg PO Q4H PRN PRN Reason: Pain MILD(1-3)/Fever >100.5/[place] Acetaminophen/Hydrocodone Bitart ([place] 5/325) 2 each PO Q6H PRN PRN Reason: Pain, Moderate (4-6) Atorvastatin Calcium (Lipitor) 40 mg PO QHS [place] Last Admin: 05/15/16 21:50 Dose: 40 mg Bisacodyl (Dulcolax) 10 mg [place] QDAY PRN PRN Reason: Constipation unrelieved by MOM Enoxaparin Sodium (Lovenox) 40 mg SUB-Q QDAY@1000 [place] Last Admin: 05/16/16 09:26 Dose: 40 mg Sodium Chloride (Nacl 0.9% 1000 Ml) 1,000 mls @ 100 mls/hr IV DIRECT [place] Last Admin: 05/16/16 04:29 Dose: 100 mls/hr Lisinopril (Zestril) 10 mg PO QDAY [place] Last Admin: 05/16/16 09:26 Dose: 10 mg Magnesium Hydroxide (Milk Of Magnesia) 30 ml PO Q4H PRN PRN Reason: Constipation Metoprolol Tartrate (Lopressor) 25 mg PO BID [facility] Ondansetron HCl (Zofran) 4 mg IV Q8H PRN PRN Reason: N/V unrelieved by Reglan Exam - Constitutional Vitals: Temp Pulse Resp BP Pulse Ox 97.9 F 97 H 20 144/75 99 05/16/16 07:20 05/16/16 07:20 05/16/16 07:20 05/16/16 07:20 05/16/16 07:20 Results - Labs CBC & Chem 7: 05/14/16 18:14 05/16/16 04:40 Labs: Abnormal lab results 05/16/16 Range/Units 04:40 Creatinine 0.6 L (0.7-1.2) mg/dL
[2016-05-16] MEDS: LOPRESSOR PO SCH (22:31)
--- NOTE | 2016-05-17 03:22 | Consultation ---
HISTORY OF PRESENT ILLNESS: This is a 71-year-old female that presents to the [facility] after having had at least the fourth episode of complete blackout spell. She was apparently eating dinner with family members, became acutely ill, nauseated, eyes rolled back in her head and she had then blackout spell, lost consciousness. According to bystanders, she had jerking episode. She has had three spells like this in the past and has had a prior history of diabetes and when she presented to the Emergency Room, her D-dimer test of 440. The glucose was 256. CPK was 147, which was elevated. Urinalysis was unremarkable. PAST MEDICAL HISTORY: She has had three spells like this in the past. Unfortunately, there are no witnesses present to further describe these. She denies a history of head trauma. Denies history of bowel or bladder continence. Her past medical history is remarkable for neurological problems such as stroke, seizures. SOCIAL HISTORY: She does not drink alcohol, take illicit drugs. ALLERGIES: On examination, the patient, she has no known allergies. PHYSICAL EXAMINATION VITAL SIGNS: On my examination, her blood pressure is 144/75, pulse rate is 97, respirations 20, O2 saturation is 99%. NEUROLOGIC: The patient's examination shows her to be alert, appropriate, responsive. NECK: Supple. NEUROLOGIC: Speech clear. Cost Estimating Clerk strength is equal. Motor examination is normal. Extraocular movements are full. No tremors or asterixis are present. Motor tone is entirely symmetrical. IMPRESSION: Episode of loss of consciousness, preceded by a tonic-type movements, certainly sounds like a seizure. She has microangiopathic changes on her CT and elevated CPK. Certainly, does at this point sound as if she has a witnessed seizure to the situation. I would recommend getting a more direct history from the sister, who witnessed this as there was a question as to whether this might be related to blood pressure medications. I will look into this by speaking with her. Also plan to review her EEG. Thank you for your consult. JOB# [id number] FREDERICK/NTS
[2016-05-17] MEDS: LOPRESSOR PO SCH ×2 (10:15→21:38)
[2016-05-17] MEDS: ZESTRIL PO SCH (10:15)
[2016-05-17] MEDS: LOVENOX SUB-Q SCH (11:14)
--- NOTE | 2016-05-17 12:03 | Progress Note ---
Assessment and Plan Assessment and plan: Syncope. * likley due to seizure * EEG result was positive * start on keppra BID, wait for further neuro recommendation * Echocardiogram showed normal EF. * Normal orthostatic vitals * Carotid Doppler showed less than 50% stenosis bilaterally * CT scan of the head showed chronic changes Multiple PVCs on tele. * Started on betablockers. She is on Tele monitor. * Continue to monitor Hypertension. Continue home meds. Hyperlipidemia. Continue Statins DVT prophylaxis with Lovenox Full code status History Interval history: Patient seen and examined. Medical records and medication list reviewed. No acute event overnight noted by the RN. Patient denies any chest pain or difficulty breathing. Patient is tolerating diet. Discussed with the patient and her family member who witnessed the episode of syncope. Patient did not have any tongue bite stool or urinary incontinence during the episode But according to them she had prior two episodes and during her first episode she did have bowel incontinence Noted EEG report, which was positive for epileptic focus at the frontal area Discussed plan of care at bedside with patient. Hospitalist Physical - Physical exam Narrative exam: GENERAL: well-developed elderly -[place]ic female lying on bed appeared to be in no discomfort. HEENT: Normocephalic. Atraumatic. No conjunctival congestion or icterus. Patient has moist mucous membranes. NECK: Supple. Trachea midline. CHEST/LUNGS: Clear to auscultated bilaterally, breathing nonlabored. No wheezes crackles or rhonchi. HEART/CARDIOVASCULAR: Regular in rate and rhythm. S1 and S2 positive. ABDOMEN: Abdomen is soft, nontender. Patient has normal bowel sounds. SKIN: There is no rash. Warm and dry. NEURO: No focal motor deficit. Follows command. MUSCULOSKELETAL: No joint effusion or tenderness. EXTRIMITY: No edema, no cyanosis or clubbing. PSYCH: Cooperative. - Constitutional Vitals: Temp Pulse Resp BP Pulse Ox 97.7 F 70 18 148/81 98 05/17/16 08:00 05/17/16 08:00 05/17/16 08:00 05/17/16 08:00 05/17/16 08:00 General appearance: Present: no acute distress, well-nourished Results - Labs CBC & Chem 7: 05/14/16 18:14 05/16/16 04:40 Labs: Laboratory Last Values WBC 9.5 K/mm3 (4.5-11.0) 02/19/17 18:14 RBC 4.51 M/mm3 (3.65-5.03) 05/14/16 18:14 Hgb 12.6 gm/dl (10.1-14.3) 05/14/16 18:14 Hct 39.8 % (30.3-42.9) 05/14/16 18:14 MCV 88 fl (79-97) 05/14/16 18:14 MCH 28 pg (28-32) 05/14/16 18:14 MCHC 32 % (30-34) 05/14/16 18:14 RDW 14.9 % (13.2-15.2) 05/14/16 18:14 Plt Count 248 K/mm3 (140-440) 05/14/16 18:14 Lymph % (Auto) 24.7 % (13.4-35.0) 05/14/16 18:14 [place] % (Auto) 4.5 % (0.0-7.3) 05/14/16 18:14 Eos % (Auto) 0.8 % (0.0-4.3) 05/14/16 18:14 Baso % (Auto) 0.5 % (0.0-1.8) 05/14/16 18:14 Lymph # 2.3 K/mm3 (1.2-5.4) 05/14/16 18:14 [place] # 0.4 K/mm3 (0.0-0.8) 05/14/16 18:14 Eos # 0.1 K/mm3 (0.0-0.4) 05/14/16 18:14 Baso # 0.0 K/mm3 (0.0-0.1) 05/14/16 18:14 Add Manual Diff TNR 05/14/16 17:37 Seg Neutrophils % 69.5 % (40.0-70.0) 05/14/16 18:14 Seg Neutrophils # 6.6 K/mm3 (1.8-7.7) 05/14/16 18:14 D-Dimer 440.59 ng/mlDDU (0-234) H 05/15/16 15:48 Sodium 141 mmol/L (137-145) 05/16/16 04:40 Potassium 3.8 mmol/L (3.6-5.0) 05/16/16 04:40 Chloride 105.5 mmol/L (98-107) 05/16/16 04:40 Carbon Dioxide 22 mmol/L (22-30) 05/16/16 04:40 Anion Gap 17 mmol/L 05/16/16 04:40 BUN 11 mg/dL (7-17) 05/16/16 04:40 Creatinine 0.6 mg/dL (0.7-1.2) L 05/16/16 04:40 Estimated GFR > 60 ml/min 05/16/16 04:40 BUN/Creatinine Ratio 18.33 % 05/16/16 04:40 Glucose 92 mg/dL (65-100) 05/16/16 04:40 Calcium 8.7 mg/dL (8.4-10.2) 05/16/16 04:40 Magnesium 2.0 mg/dL (1.7-2.3) 05/14/16 17:37 Total Creatine Kinase 129 units/L (30-135) 05/15/16 23:38 CK-MB (CK-2) 2.3 ng/mL (0.0-4.0) 05/15/16 23:38 CK-MB (CK-2) Rel Index 1.7 (0-4) 05/15/16 23:38 Troponin T < 0.010 ng/mL (0.00-0.029) 05/14/16 17:37 Urine Color Yellow (Yellow) 05/14/16 18:10 Urine Turbidity Clear (Clear) 05/14/16 18:10 Urine pH 5.0 (5.0-7.0) 05/14/16 18:10 Ur Specific [place] 1.016 (1.003-1.030) 05/14/16 18:10 Urine Protein <15 mg/dl mg/dL (Negative) 05/14/16 18:10 Urine Glucose (UA) Neg mg/dL (Negative) 05/14/16 18:10 Urine Ketones Neg mg/dL (Negative) 05/14/16 18:10 Urine Blood Neg (Negative) 05/14/16 18:10 Urine Nitrite Neg (Negative) 05/14/16 18:10 Urine Bilirubin Neg (Negative) 05/14/16 18:10 Urine Urobilinogen < 2.0 mg/dL (<2.0) 05/14/16 18:10 Ur Leukocyte Esterase Sm (Negative) 05/14/16 18:10 Urine WBC (Auto) 2.0 /HPF (0.0-6.0) 05/14/16 18:10 Urine RBC (Auto) 4.0 /HPF (0.0-6.0) 05/14/16 18:10 U Epithel Cells (Auto) < 1.0 /HPF (0-13.0) 05/14/16 18:10 Urine Mucus Few /HPF 05/14/16 18:10 - Imaging and Cardiology CT Scan - head: report reviewed
--- NOTE | 2016-05-17 12:50 | Progress Note ---
Assessment and Plan Syncope troponin negative orthostatics negative carotids negative Echo: EF 50-55%, impaired relaxation neurology following, await EEG results PVCs continue metoprolol 25mg BID will continue to observe on the monitor Hypertension stable continue lisinopril, metoprolol Hyperlipidemia continue statin Stable cardiac status. Continue current management. Will see as needed. The patient has been seen in conjunction with Dr. Milan who agrees with the assessment and plan of care. Subjective Date of service: 05/17/16 Principal diagnosis: syncope, PVCs Interval history: The patient is resting comfortably in bed. No new complaints. Sinus rhythm with PVCs on the monitor. Objective Last Vital Signs Temp 97.7 F 05/17/16 08:00 Pulse 70 05/17/16 08:00 Resp 18 05/17/16 08:00 BP 148/81 05/17/16 08:00 Pulse Ox 98 05/17/16 08:00 - Physical Examination General: No Apparent Distress HEENT: Positive: PERRL, Normocephaly, Mucus Membranes Moist Neck: Positive: neck supple, trachea midline Cardiac: Positive: Reg Rate and Rhythm, S1/S2 Lungs: Positive: clear to auscultation Neuro: Positive: Grossly Intact Abdomen: Positive: Soft, Active Bowel Sounds. Negative: Tender Skin: Positive: Clear. Negative: Rash Extremities: Present: normal. Absent: edema - Imaging and Cardiology EKG: image reviewed Echo: report reviewed - Telemetry EKG Rhythm: Sinus Rhythm - EKG Sinus rhythms and dysrhythmias: sinus rhythm Ventricular dysrhythmias: ventricular premature com
[2016-05-17] MEDS: KEPPRA PO SCH (21:38)
[2016-05-17] MEDS: NACL 0.9% 1000 ML 1,000 ML IV SCH (21:40)
[2016-05-18] MEDS: NACL 0.9% 1000 ML 1,000 ML IV SCH (07:13)
[2016-05-18] MEDS: LOPRESSOR PO SCH (09:47)
[2016-05-18] MEDS: KEPPRA PO SCH (09:47)
[2016-05-18] MEDS: ZESTRIL PO SCH (09:48)
[2016-05-18] MEDS: LOVENOX SUB-Q SCH (09:48)
[2016-05-18 09:50] VITALS: BP 141/77
--- NOTE | 2016-05-18 10:38 | Discharge Summary ---
Providers - Providers Date of Admission: 05/14/16 18:57 Date of discharge: 05/18/16 Attending physician: EMILEE BARBOSA 05/14/16 19:14 Consult to Physician [CONS] Routine Consulting Provider: YVETTE SIMMONS Reason For Exam: abnormal ekg Place consult to:: Manisha August Notified:: yes Was contact made?: Yes If yes, spoke with:: Manisha August Time called:: 09:25 05/16/16 14:29 Consult to Physician [CONS] Routine Consulting Provider: CACHORRO ROOT Reason For Exam: possible seizure Place consult to:: neurology/ Notified:: OFFICE Phone number called:: [phone] Was contact made?: Yes If yes, spoke with:: CATY Time called:: 14:49 Comment:: ELLEN NOTIFIED Primary care physician: A P SUPERVISOR Hospitalization Condition: Stable Hospital course: Discharge Diagnosis: Syncope. * likley due to seizure * EEG result was positive * cont on keppra BID, * Echocardiogram showed normal EF. * Normal orthostatic vitals * Carotid Doppler showed less than 50% stenosis bilaterally * CT scan of the head showed chronic changes Multiple PVCs on tele. * Started on betablockers. She was monitored on Tele monitor. * Continue to monitor Hypertension. Continue home meds. on lisinopril and metoprolol Hyperlipidemia. Continue Statin Disposition: DISCHARGED TO HOME OR SELFCARE Time spent for discharge: 32 minutes Core Measure Documentation - Palliative Care Palliative Care/ Comfort Measures: Not Applicable - Core Measures Any of the following diagnoses?: none Exam - Physical Exam Narrative exam: GENERAL: well-developed elderly -[place] female lying on bed appeared to be in no discomfort. HEENT: Normocephalic. Atraumatic. No conjunctival congestion or icterus. Patient has moist mucous membranes. NECK: Supple. Trachea midline. CHEST/LUNGS: Clear to auscultated bilaterally, breathing nonlabored. No wheezes crackles or rhonchi. HEART/CARDIOVASCULAR: Regular in rate and rhythm. S1 and S2 positive. ABDOMEN: Abdomen is soft, nontender. Patient has normal bowel sounds. SKIN: There is no rash. Warm and dry. NEURO: No focal motor deficit. Follows command. MUSCULOSKELETAL: No joint effusion or tenderness. EXTRIMITY: No edema, no cyanosis or clubbing. PSYCH: Cooperative. - Constitutional Vitals: Temp Pulse Resp BP Pulse Ox 98.0 F 69 20 141/77 99 05/18/16 01:05 05/18/16 01:05 05/18/16 01:05 05/18/16 09:47 05/18/16 01:05 Plan Activity: fall precautions, other (No driving for 6 months) Weight Bearing Status: Non-Weight Bearing Diet: low cholesterol, low salt Special Instructions: record daily BP diary Follow up with: PRIMARY CARE, [Primary Care Provider] - 3-5 Days Prescriptions: levETIRAcetam [Keppra TAB] 500 mg PO BID #60 tablet Lisinopril [Zestril TAB] 10 mg PO QDAY #30 tablet Metoprolol [Lopressor TAB] 25 mg PO BID #60 tablet
--- NOTE | 2016-05-22 07:26 | Vascular Lab Report ---
CAROTID DUPLEX STUDY: RIGHT PSVEDV CCA PROX: [id number] CCA DIST: 9013 ICA PROX: 5920 ICA MID: 6523 ICA DIST: 7933 ECA: 37 VERT: 49 14 LEFT PSVEDV CCA PROX:[id number] CCA DIST: 7827 ICA PROX: 5221 ICA MID: 6730 ICA DIST: 6830 ECA: 49 VERT: 42 15 REASON FOR EXAM: Carotid artery stenosis. COMMENTS ON THE RIGHT: Doppler frequency analysis is consistent with 16 to 49 percent diameter reduction of the internal carotid artery. Minimal amount of plaque is seen. The common carotid artery is patent. The external carotid artery is patent. The vertebral artery has antegrade flow. COMMENTS ON THE LEFT: Doppler frequency analysis is consistent with 16 to 49 percent diameter reduction of the internal carotid artery. Minimal amount of plaque is seen. The common carotid artery is patent. The external carotid artery is patent. The vertebral artery has antegrade flow. IMPRESSION: Less than 50% diameter reduction in the internal carotid arteries bilaterally. Consider repeat carotid artery duplex in 12 months.
== END 2016-05-18 13:10 | disposition home or self-care (01) | DRG 101 ==
LOC: ED 16:53 → 3A 18:57
PROVIDERS: ADMIT Internal Medicine; ATTEND Internal Medicine
DX: R56.9 Unspecified convulsions (principal); I95.9 Hypotension, unspecified; I49.3 Ventricular premature depolarization; I10 Essential (primary) hypertension; E78.5 Hyperlipidemia, unspecified; Z90.710 Acquired absence of both cervix and uterus
CPT/HCPCS: 36415; 70450; 80048; 81001; 82550; 82553; 83735; 84484; 85025; 85379; 93005; 93010; 93306; 93880; 95819; 96360; A9270-GY; J1650; J7030